=== PATIENT | female | born 1970 | race Caucasian/White ===

== ENCOUNTER 2017-06-25 17:35 | Emergency (ER) | payer OTHER ==
[2017-06-25 18:05] LABS: PH,URINE 6.5 (4.5-8); URINE APPEARANCE Clear; URINE BILIRUBIN Negative (NEGATIVE); URINE BLOOD Negative (NEGATIVE); URINE GLUCOSE (UA) Negative (NEGATIVE); URINE KETONE Negative (NEGATIVE); URINE NITRITE Negative (NEGATIVE); URINE PROTEIN Negative (NEGATIVE); URINE UROBILINOGEN 0.2 (0.2-1.0)
[2017-06-25 18:09] LABS: URINE LEUK ESTERASE TRACE (NEGATIVE)
[2017-06-25 18:10] LABS: URINE COLOR YELLOW
[2017-06-25 18:49] VITALS: BP 103/68; PULSE 65; TEMP 99; BMI 23.1
[2017-06-25 18:52] LABS: URINE RBC NONE SEEN /hpf (0-3)
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
[2017-06-25] MEDS ORDERED: KETOROLAC TROMETHAMINE 60 MG/2 ML VIAL ONE (19:27)
[2017-06-25] MEDS ORDERED: KETOROLAC TROMETHAMINE 60 MG/2 ML VIAL IM ONE (19:28)
== END 2017-06-25 19:49 | disposition home or self-care (01) ==
LOC: SUPCPDRO 17:35 → FER 17:35
PROC: 3E0233Z Introduction of Anti-inflammatory into Muscle, Percutaneous Approach (ICD-10-PCS; principal; 2017-06-25)
DX: M54.6 Pain in thoracic spine (principal); F41.9 Anxiety disorder, unspecified
CPT/HCPCS: 81003; 81015; 99282-25